=== PATIENT | male | born 1975 | race Caucasian/White ===

== ENCOUNTER 2017-01-08 22:46 | Inpatient (IN) | payer MEDICAID ==
[~2017-01-08] VITALS: Ht 175.3 cm; Wt 89.1 kg
[2017-01-09] VITALS (20 sets, daily range): BP systolic 111–145; BP diastolic 74–100; Ht 175.3 cm; Wt 89.1 kg
[2017-01-09 01:11] LABS: APPEARANCE CLEAR (CLEAR); BILIRUBIN 1+ (NEGATIVE); COLOR DK YELLOW (YELLOW); GLUCOSE NEGATIVE (NEGATIVE); KETONE SMALL mg/dL (NEGATIVE); LEUKOCYTE ESTERASE NEGATIVE (NEGATIVE); NITRITE NEGATIVE (NEGATIVE); PROTEIN NEGATIVE (NEGATIVE); SPECIFIC GRAVITY 1.025 (1.005-1.020); UROBILINOGEN NORMAL (NORMAL)
[2017-01-09 01:17] LABS: UDS - AMPHET POSITIVE QUAL (NEGATIVE); UDS - BARB NEGATIVE QUAL (NEGATIVE); UDS - BENZO NEGATIVE QUAL (NEGATIVE); UDS - COCAINE NEGATIVE QUAL (NEGATIVE); UDS - METH NEGATIVE QUAL (NEGATIVE); UDS - OPIATE NEGATIVE QUAL (NEGATIVE); UDS - PCP NEGATIVE QUAL (NEGATIVE); UDS - THC POSITIVE QUAL (NEGATIVE)
[2017-01-09 01:21] LABS: BASOPHILS 0.3 % (0-2); EOSINOPHILS 0.7 % (0-7); HEMATOCRIT 39.3 % (42.0-54.0); HEMOGLOBIN 13.1 g/dL (13.5-17.5); IMMATURE GRANULOCYTES 0.2 % (0-5); LYMPHOCYTES 13.8 % (15-50); MCH 29.5 pg (26.0-34.0); MCHC 33.3 g/dL (31.0-37.0); MCV 88.5 fL (80.0-100.0); MEAN PLATELET VOLUME 9.4 fL (7.4-10.4); MONOCYTES 9.6 % (2-11); NEUTROPHILS 75.4 % (40-80); PLATELET COUNT 399 10x3/uL (130-400); RBC 4.44 10x6/uL (4.20-6.10); RDW 13.4 % (11.5-14.5); WBC 16.5 10x3/uL (4.8-10.8)
[2017-01-09 01:41] LABS: ALBUMIN 3.5 g/dL (3.4-5.0); ANION GAP 13.8 mmol/L (8-16); BILIRUBIN - TOTAL 1.4 mg/dL (0.2-1.3); CALCIUM 9.3 mg/dL (8.5-10.1); CARBON DIOXIDE 26.8 mmol/L (21.0-32.0); CREATININE - SERUM 1.2 mg/dL (0.6-1.3); POTASSIUM - SERUM 3.6 mmol/L (3.5-5.1); PROTEIN - SERUM 8.2 g/dL (6.4-8.2)
--- NOTE | 2017-01-09 02:49 | NUR ---
0245 DR JUSTIN PRESENT FOR VASCULAR STUDIES. TIME OUT PERFORMED.
--- NOTE | 2017-01-09 02:50 | NUR ---
PT IN ER WITH POLICE ANKLE MONITORING DEVICE ON LEFT ANKLE. [facility]K POLICE DEPARTMENT PRESENT AND STATES THAT HE CANNOT AUTHORIZE REMOVAL OF MONITOR AND THAT HE HAS TRIED TO CONTACT PT LITURGICAL MUSIC DIRECTOR WITHOUT SUCCESS. INFORMED OFFICER THAT WE MAY HAVE TO CUT MONITOR OFF FOR SURGICAL PROCEDURE. HE STATED THAT HIS SERGEANT SAID TO DO WHAT WE HAD TO DO. DR MONTENEGRO CUT ANKLE MONITOR OFF IN OR ROOM.
--- NOTE | 2017-01-09 03:30 | NUR ---
0330: Pt arrived from OR with OR team at bedside. Pt placed in room 2304 and all monitors established with alarm on.
--- NOTE | 2017-01-09 03:35 | NUR ---
0335: Pt arrived from OR with ankle bracelet device that has been removed by OR for purposes of cautery. Notified HSV. Ankle bracelet remains in room and OR staff state [facility] was contacted prior to OR.
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
--- NOTE | 2017-01-09 04:10 | NUR ---
0410: Diluadid NET DEVELOPER CONSULTANT intiated at this time as per orders. Education provided to patient regarding use of NET DEVELOPER CONSULTANT and pt returns demonstration. Pt states he wants "Hydros" and asks if pain medicine is like "Hydros." Education regarding pain relief provided. Pt states he is "done doing meth." Pt continues with poor recall and does not know what happended to leg. Pt verbalized understanding of surgery and asks when he can smoke. Instructions regarding smoking provided. Pt states "I really don't live anywhere." Discussed with patient case management involvement to assist.
--- NOTE | 2017-01-09 07:00 | NUR ---
REC'D CARE OF PT. VSS.
--- NOTE | 2017-01-09 08:00 | NUR ---
INITIAL ASSESSMENT COMPLETED PER FLOW SHEET. PLEASANTLY CONFUSED. REORIENTED TO TIME. ON RA SATTING 98%. RR 20 EVEN AND UNLABORED. LEFT WRIST/HAND PIV WITH 0.45NS INFUSING AT 50 CC PER HOUR. NO S/S OF INFILTRATION. RIGHT LEG DRSG WITH FIXATION DEVICE IN PLACE. UPPER EXT PPP. LEFT LOWER EXT PPP. RIGHT LOWER EXT PPD. GARZA. REPOSITIONS SELF IN BED. CAP REFILL <3 X4 EXT. DILAUDED SERGEANT OF CORRECTIONS 0.2 MG Q 10". 4MG Q 4H LO. C/O INCISIONAL PAIN 02/10. TEACHING DONE ABOUT USE OF SERGEANT OF CORRECTIONS.BED IN LOWEST POSITION. CLWR. CPOC.
[2017-01-09 09:19] LABS: BASOPHILS 0.1 % (0-2); EOSINOPHILS 0.1 % (0-7); HEMATOCRIT 39.2 % (42.0-54.0); HEMOGLOBIN 12.9 g/dL (13.5-17.5); IMMATURE GRANULOCYTES 0.3 % (0-5); LYMPHOCYTES 10.3 % (15-50); MCH 29.4 pg (26.0-34.0); MCHC 32.9 g/dL (31.0-37.0); MCV 89.3 fL (80.0-100.0); MEAN PLATELET VOLUME 9.8 fL (7.4-10.4); MONOCYTES 10.1 % (2-11); NEUTROPHILS 79.1 % (40-80); PLATELET COUNT 333 10x3/uL (130-400); RBC 4.39 10x6/uL (4.20-6.10); RDW 13.3 % (11.5-14.5)
[2017-01-09 09:45] LABS: CALC OSMOLALITY 286 mosm/kg (275-300); CALCIUM 8.9 mg/dL (8.5-10.1); CARBON DIOXIDE 26.2 mmol/L (21.0-32.0); CHLORIDE - SERUM 104 mmol/L (98-107); GLUCOSE 147 mg/dL (74-106); SODIUM 141 mmol/L (136-145); UREA NITROGEN 20 mg/dL (7-18); eGFR NON AFRICAN AMERICAN 87 mL/min (90-120)
[2017-01-09 09:46] LABS: POTASSIUM - SERUM 5.4 mmol/L (3.5-5.1)
--- NOTE | 2017-01-09 11:00 | NUR ---
REASSESSMENT COMPLETED PER FLOW SHEET. NO ACUTE CHANGES. DRAINAGE AT RIGHT LOWER EXT INCISION DRSG HAS NOT INCREASED. PATTING 99% ON RA. 0.45NS CONTINUES TO INFUSE AT LEFT HAND PIV. NO S/S OF INFECTION OR INFILTTATION. STERILE CAPS ARE ON. DRSG CD&I. SCD IS ON LEFT LEG. RIGHT LEG WITH DRSG AND EXTERNAL FIXATION DEVICE. ALL PPP. GARZA. FOLLOWS COMMANDS. COWR. CPOC. DENIES NEEDS. DENIES PAIN.
--- NOTE | 2017-01-09 11:38 | NUR ---
MOM AT BEDSIDE. UPDATED.
--- NOTE | 2017-01-09 12:45 | NUR ---
DR. MONTENEGRO JUST LEFT ROOM. HE UPDATED FAMILY. HE PUT IN TRANSFER ORDERS.
--- NOTE | 2017-01-09 14:00 | NUR ---
DENIES NEEDS. DENIES PAIN.
--- NOTE | 2017-01-09 15:11 | NUR ---
TRANSFER ORDERS ARE IN. CONTINUE TO WAIT FOR BED. RESTING WITH EYES CLOSED. RESPONSE APPROPRIATLY TO VERBAL STIMULI. VSS. CM=NS RATE OF 61. NO ECTOPY. CLWR. CPOC.
--- NOTE | 2017-01-09 15:14 | NUR ---
POLICE MONITORING DEVICE REMAINS IN ROOM WITH PT.
--- NOTE | 2017-01-09 15:34 | NUR ---
NITRO APPLIED TO RIGHT FOOT PER ORDERS.
--- NOTE | 2017-01-09 17:18 | NUR ---
DINNER TRAY SERVED
--- NOTE | 2017-01-09 18:13 | NUR ---
"MY LEG IS KILLING ME" I EXPLAINED TO HIM AND THE FAMILY THAT HE HAS BEEN SLEEPING FOR A WHILE AND HAS NOT BEEN USING HIS LEGEND MAKER. HE DENIES PAIN EXCEPT HIS RIGHT LEG INCISIONAL PAIN. EXTERNAL FIXATION DEVICE IN PLACE. SMALL AMOUNT OF DRAINAGE NOTED ON BOTTOM OF CALF OF LEG. VSS. SATTING 98% ON RA. BED IN LOW POSITION. CLWR. CPOC.
--- NOTE | 2017-01-09 18:13 | NUR ---
FAMILY AT BEDSIDE. PT. AWAKE, A&O X3. C/O PAIN, INCISIONAL 04/12. INSTRUCTED HIM TO USE HIS OFFICE ASSISTANT.
--- NOTE | 2017-01-09 19:30 | NUR ---
REPORT RECIEVED, SHIFT ASSESSMENT COMPLETE, PT IS CONFUSED TO SITUATION AND TIME, REORIENTS EASILY, ON RA WITH 97% O2 SAT. LUNGS CLEAR IN ALL LOBES, S1S2, CM-NSR, PATENT LEFT HAND PIV WITH 1/2 NS INFUSING VIA PUMP, ABDOMEN IS SOFT AND FLAT WITH ACTIVE BS, URINAL AT BEDSIDE, RIGHT GROIN DRSG TO INSERTION SITE IN CDI, FIXATOR TO RIGHT LEG, DRSG OOZING, ALL PPP, VSS, CALL LIGHT IN REACH
--- NOTE | 2017-01-09 23:08 | NUR ---
PT RESTING AT THIS TIME, NO NEEDS NOTED, VSS, CALL LIGHT IN REACH
[2017-01-10 03:00] VITALS: BP 115/76
--- NOTE | 2017-01-10 03:14 | NUR ---
PRISCILA FROM LAB IN ROOM TO DRAW DAILY LAB
[2017-01-10 03:57] LABS: HEMOGLOBIN 11.3 g/dL (13.5-17.5)
--- NOTE | 2017-01-10 07:00 | NUR ---
REPORT RECIEVED ASSUMED CARE. PATIENT IN BED WITH IV INTACT. NO COMPLAINTS. CALL LIGHT WITHIN REACH.
[2017-01-10 08:04] VITALS: BP 132/90
[2017-01-10 11:35] VITALS: BP 122/72
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
--- NOTE | 2017-01-10 15:20 | NUR ---
PATIENT PAD UNDER RLE CHANGED. PATIENT PULLED UP AND REPOSITIONED. IV INTACT. EXTERNAL FIXATOR INTACT. ELEVATED ON 3 PILLOWS. CALL LIGHT WITHIN REACH.
[2017-01-10 15:46] VITALS: BP 127/76
--- NOTE | 2017-01-10 18:55 | NUR ---
PATIENT IN BED WITH IV INTACT. DRESSING TO RIGHT LEG LEAKING PINK/RED DRAINAGE. PAD UNDER LEG CLEAN. NO COMPLAINTS AT THIS TIME. CALL LIGHT WITHIN REACH
--- NOTE | 2017-01-10 19:30 | NUR ---
PATIENT RESTING IN BED WITH NO VISIBLE SIGNS OF DISTRESS. DRAINAGE NOTED ON KATE BANDAGE TO THE PATIENT'S RIGHT LEG. BROUGHT PATIENT A DRINK PER HIS REQUEST. PATIENT DENIES OTHER NEEDS AT THIS TIME. BED IN LOWEST POSITION AND CALL LIGHT WITHIN REACH. ENCOURAGED THE PATIENT TO CALL IF HE HAS FURTHER NEEDS.
[2017-01-10 20:56] VITALS: BP 128/76
[2017-01-11] VITALS: BP 124/43
[2017-01-11 04:00] VITALS: BP 146/97
[2017-01-11 05:25] LABS: HEMATOCRIT 31.8 % (42.0-54.0); HEMOGLOBIN 10.6 g/dL (13.5-17.5)
--- NOTE | 2017-01-11 07:00 | NUR ---
REPORT RECIEVED ASSUMED CARE. PATIENT IN BED WITH IV INTACT. NO COMPLAINTS AT THIS TIME. CALL LIGHT WITHIN REACH. RLE ELEVATED ON THREE PILLOWS. DRESSING INTACT. EXTERNAL FIXATION INTACT. CALL LIGHT WITHIN REACH.
[2017-01-11 08:08] VITALS: BP 138/94
--- NOTE | 2017-01-11 10:40 | NUR ---
PATIENT IN BED WITH IV INTACT, NO COMPLAINTS. FAMILY AT BEDSIDE. CALL LIGHT WITHIN REACH.
--- NOTE | 2017-01-11 14:27 | NUR ---
Patient's mother spoke with CM multiple times today about getting the patient placed. I spoke with patient and he is willing to go to a rehab as long has he is able to smoke cigarettes. I spoke with JAMARI Santos she went and spoke with patient and explained the process he is agreeable. Waiting on approval. CM will continue to follow and assist.
--- NOTE | 2017-01-11 15:00 | NUR ---
PATIENT IN BED WITH EYES CLOSED RESTING QUIETLY AT THIS TIME. CALL LIGHT WITHIN REACH.
[2017-01-11 16:32] VITALS: BP 133/85
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
[2017-01-11 20:00] VITALS: BP 138/87
--- NOTE | 2017-01-11 20:05 | NUR ---
PATIENT IS AWAKE AND ALERT. PATIENT STATED HE CANNOT BREATH, OXYGEN SATURATION 99% ON ROOM AIR. BROUGHT PATIENT AN INCENTIVE SPIROMETER, SOFIA EDUCATED PATIENT ON USE. PATIENT DEMONSTRATED UNDERSTANDING. TOLD PATIENT TO COUGH, PATIENT STATED "I CAN'T" AND POINTED AT THIS LEG WITH AN EXTERNAL FIXATOR IN PLACE. EXPLAINED TO PATIENT THAT IF HE DOES NOT COUGH AND DEEP BREATH THAT IT PUTS HIM AT RISK FOR PN. PATIENT COUGHED UP SPUTUM INTO A SODA CAN. PATIENT STATED I CAN DO THAT. PATIENT IS HICCUPPING AND STATED "I NEED SOMETHING FOR INDIGESTION." OFFERED PATIENT SOME MILK. HE REFUSED THE MILK, HE STATED "I NEED SOME MEDICINE." I STATED "I WILL TELL YOUR NURSE, SOFIA." TOLD SOFIA.
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
[2017-01-12] VITALS: BP 130/88
--- NOTE | 2017-01-12 01:53 | NUR ---
EYES CLOSED RESP EVEN AND UNALBORED. NO DISTRESS NOTED.
[2017-01-12 04:00] VITALS: BP 122/78
[2017-01-12 05:50] LABS: HEMATOCRIT 31.1 % (42.0-54.0); HEMOGLOBIN 10.2 g/dL (13.5-17.5)
--- NOTE | 2017-01-12 07:25 | NUR ---
ASSESSMENT PER FLOW SHEET.DRESSING RLE HAS SOME BLOODY DRAINAGE ON KATE WRAP.PT STATES PAIN CONTROLLED WITH CLINIC ASSISTANT.MONITOR FOR NEEDS.
[2017-01-12 08:01] VITALS: BP 116/68
[2017-01-12 11:54] VITALS: BP 124/81
--- NOTE | 2017-01-12 15:00 | NUR ---
DRESSING CHANGE TO RLE ORDERED.PT TOLERATED WELL.BATH AND BED CHANGE
--- NOTE | 2017-01-12 15:36 | NUR ---
REFERRAL SENT TO [facility] IN [place] SPOKE WITH KALEB ([phone])
[2017-01-12 16:30] VITALS: BP 122/82
--- NOTE | 2017-01-12 18:41 | NUR ---
REMAINS WITHOUT CHANGE FROM INITIAL SHIFT ASSESSMENT.CONT PLAN OF CARE.
[2017-01-12 19:00] VITALS: BP 114/70
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
[2017-01-13 04:00] VITALS: BP 113/63
--- NOTE | 2017-01-13 04:24 | NUR ---
RESTING QUIETLY. NO DISTRESS NOTED.
--- NOTE | 2017-01-13 07:50 | NUR ---
ASSESSMENT PER FLOW SHEET.PT WITHOUT DISTRESS.C/O PAIN,BUT STATES HASNT BEEN PUSHING BUTTON FOR ASSESSOR. USE INSTRUCTED FOR ASSESSOR.CALL LIGHT IN REACH
[2017-01-13 07:52] VITALS: BP 142/50
[2017-01-13] MEDS ORDERED: PERCOCET 10/3251 TA1 PO (08:29)
[2017-01-13 12:23] VITALS: BP 120/65
[2017-01-13 15:41] VITALS: BP 122/77
--- NOTE | 2017-01-13 16:18 | NUR ---
HAS BEEN RESTING THIS AFTERNOON,FAMILY HAS BEEN TO VISIT.HE REMAINS WITHOUT DISTRESS.WITHOUT NEEDS.CALL LIGHT IN REACH
--- NOTE | 2017-01-13 19:47 | NUR ---
REMAINS WITHOUT NEEDS,WITHOUT DISTRESS.CONT PLAN OF CARE
[2017-01-13 20:00] VITALS: BP 121/73
[2017-01-14] VITALS (7 sets, daily range): BP systolic 106–157; BP diastolic 62–89
[2017-01-14 05:06] LABS: HEMATOCRIT 27.4 % (42.0-54.0); HEMOGLOBIN 9.2 g/dL (13.5-17.5); MCH 29.5 pg (26.0-34.0); MCHC 33.6 g/dL (31.0-37.0); MCV 87.8 fL (80.0-100.0); MEAN PLATELET VOLUME 9.1 fL (7.4-10.4); RBC 3.12 10x6/uL (4.20-6.10); RDW 13.2 % (11.5-14.5); WBC 12.5 10x3/uL (4.8-10.8)
[2017-01-14 05:11] LABS: CALC OSMOLALITY 272 mosm/kg (275-300); CALCIUM 8.2 mg/dL (8.5-10.1); CARBON DIOXIDE 27.5 mmol/L (21.0-32.0); CHLORIDE - SERUM 101 mmol/L (98-107); CREATININE - SERUM 0.6 mg/dL (0.6-1.3); GLUCOSE 105 mg/dL (74-106); POTASSIUM - SERUM 4.4 mmol/L (3.5-5.1); SODIUM 136 mmol/L (136-145); UREA NITROGEN 16 mg/dL (7-18); eGFR NON AFRICAN AMERICAN > 90 mL/min (90-120)
--- NOTE | 2017-01-14 07:40 | NUR ---
ASSESSMENT PER FLOW SHEET.PT WITHOUT DISTRESS,BUT COMPLAINS OF PAIN.CNC MAINTENANCE MECHANIC USE INSTRUCTED,PT HAS NOT BEEN USING.PT STATES HE FALLS TO SLEEP.DRESSING RLE CDI HAS BEEN CHANGED AT 0430 THIS AM BY MICHAEL.DENIES NEEDS.CALL LIGHT IN REACH
--- NOTE | 2017-01-14 08:20 | NUR ---
MEDS ORDERED FOR PAIN PER MAR.MEDS ORDERED FOR HICCUPS PER MAR.
--- NOTE | 2017-01-14 09:09 | NUR ---
CM SENT A REFERRAL TO [facility] [employer] SPOKE WITH A JACLYN AND A YVAN. YVAN WILL COME AND SPEAK WITH PATIENT TODAY FOR PLACEMENT. CM HAVE RECEIVED DENIALS FROM [employer], [employer], [facility] [employer], [employer], [employer]. CM WILL CONTINUE TO TRY TO PLACE PATIENT. MOTHER CONTINUES TO SAY NO TO THE PATIENT BEING DISCHARGED TO HER HOME.
--- NOTE | 2017-01-14 11:17 | NUR ---
CM met with patient to discuss her discharge plan. She states her plan will to go [facility] in patient rehab when she is ok to go. If she is not accepted then her second choice is [facility]. CM will continue to follow and assist.
--- NOTE | 2017-01-14 13:19 | NUR ---
Received a call from Jesus at [facility] and he stated that they would accept the patient on Wednesday 01/17.
[2017-01-15] VITALS: BP 126/77
[2017-01-15 04:00] VITALS: BP 131/93
--- NOTE | 2017-01-15 04:08 | NUR ---
ASSESSED AT THE BEGINNING OF THE SHIFT. PT IS ALERT AND ORIENTED, ABLE TO VERBALIZE NEEDS. HE HAS AN EXTERNAL FIXATOR TO HIS RIGHT LOWER LEG AND IT IS ELEVATED ON A PILLOW. THE DRESSINGS ARE IN PLACE WITH NO DRAINAGE NOTED, CLEAN AND DRY. HE HAS A CERTIFIED OPHTHALMIC ASSISTANT FOR PAIN CONTROL BUT IS ASKING MORE AND MORE FOR EXTRA BREAKTHROUGH MEDS FOR PAIN. HE IS ABLE TO MOVE HIMSELF ABOUT IN THE BED AND IS EVEN ASKING TO HAVE CRUTCHES OR A WHEELCHAIR TO GO OUT IN THE HALLWAYS. INSTRUCTED TO ASK MD IN AM IF HE OK'S THEN WE WILL LET HIM. THE BED IS LOW, RAILS UP X'S 2 WITH THE CALL LIGHT AT HAND.
--- NOTE | 2017-01-15 07:00 | NUR ---
REPORT RECIEVED, ASSUMED CARE. PATIENT IN BED WITH IV INTACT. NO COMPLAINTS AT THIS TIME. CALL LIGHT WITHIN REACH.
[2017-01-15 08:23] VITALS: BP 128/79
[2017-01-15 12:01] VITALS: BP 126/78
--- NOTE | 2017-01-15 17:00 | NUR ---
NORCO PO PER C/O 10 TO RIGHT LEG. NEW BAG OF IV FLUIDS SPIKED.
--- NOTE | 2017-01-15 17:45 | NUR ---
PATIENT IN BED WITH IV INTACT. NO COMPLAINTS. LEG ELEVATED ON PILLOWS. DRESSING CLEAN AND DRY. EXTERNAL FIXATION INTACT.
[2017-01-15 20:00] VITALS: BP 125/73
[2017-01-16] VITALS: BP 127/85
[2017-01-16 04:00] VITALS: BP 134/83
--- NOTE | 2017-01-16 07:00 | NUR ---
REPORT RECIEVED ASSUMED CARE. PATIENT IN BED WITH IV INTACT. NO COMPLAINTS. CALL LIGHT WITHIN REACH.
[2017-01-16 12:57] VITALS: BP 155/95
[2017-01-16 15:58] VITALS: BP 144/54
--- NOTE | 2017-01-16 18:55 | NUR ---
PATIENT IN BED WITH NO COMPLAINTS. LEG ELEVATED ON PILLOW WITH EXTERNAL FIXATION AND DRESSING CDI. CALL LIGHT WITHIN REACH.
--- NOTE | 2017-01-16 19:05 | NUR ---
Received patient in bed visiting with two males. Drsg on lower right leg is C/D/I, elevated on pillow with external fixation. Circulation and sensation to right foot good. Remains on bedrest. PIV in left forearm infusing NS @10ml/hr. No signs of infection or infiltration. On room air, no respiratory problems. Left SCD not on at this time per patient request.
[2017-01-16 20:00] VITALS: BP 128/80
[2017-01-17] VITALS: BP 118/73
--- NOTE | 2017-01-17 00:02 | NUR ---
Has been medicated x 2 for right lower leg pain, @2025 with [place] tab and @2232 with Percocet tab. Reports analgesics are maintaining tolerable pain level at this time. PIV site inflamed and reddened. New PIV #20 resited in lower right forearm and other PIV removed. New PIV is SL at this time. Did flush well with good blood return.
[2017-01-17 04:00] VITALS: BP 118/78
--- NOTE | 2017-01-17 07:00 | NUR ---
REPORT RECIEVED ASSUMED CARE. PATIENT IN BED WITH NO COMPLAINTS AT THIS TIME. IV INTACT. CALL LIGHT WITHIN REACH.
[2017-01-17] MEDS ORDERED: ASPIRIN81 MG PO (07:54)
[2017-01-17 08:09] VITALS: BP 118/72
--- NOTE | 2017-01-17 09:11 | NUR ---
Patient with discharge orders to [facility]. I went and spoke with Patient to make sure he still wanted to go and he did. DES signed for [facility]. I gave the patient a brochure of [facility]. I called patient mother to inform her of his placement. She asked multiple questions that I did not have the answers to yet and I offered her to sit at patient bedside till transferred happened and she did not have time to do that. I told her that [facility] will have discharge instructions with all dr's appointments on and that we would fax the info to the [place] [facility] as [facility]. Spoke with Jesus at [facility] about patient with discharge orders. He stated he would call me back with a last picker time. CM will continue to follow and assist.
--- NOTE | 2017-01-17 10:15 | NUR ---
PATIENT DRESSING CHANGED AT THIS TIME. PIN SITES CLEANED WITH WOUND GROUP MANAGING DIRECTOR. INCISIONS AND SURROUNDING AREAS CLEANED WITH WOUND GROUP MANAGING DIRECTOR. INCISIONS CLEAN AND RED. SMALL AMOUNT OF DRAINAGE ON OLD GAUZE. YELLOW AND PINK DRAINAGE. XEROFORM AND NEW GAUZE PLACED AROUND PIN SITES AND OVER INCISIONS. WRAPPED WITH KATE BANDAGES. PATIENT TOLERATED WITH A SMALL AMOUNT OF PAIN. IV INTACT. CALL LIGHT WITHIN REACH.
[2017-01-17 11:33] VITALS: BP 128/81
--- NOTE | 2017-01-17 11:50 | NUR ---
PATIENT IN BED WITH EYES CLOSED RESTING QUIETLY. CALL LIGHT WITHIN REACH.
--- NOTE | 2017-01-17 12:58 | NUR ---
PATIENT REPORT CALLED TO MIKE AT [facility]. PATIENT WAITING FOR AMBULANCE AT THIS TIME. IV REMOVED WITH CATH TIP INTACT. CALL LIGHT WITHIN REACH. FAMILY AT BEDSIDE.
--- NOTE | 2017-01-17 14:10 | NUR ---
PATIENT DISCHARGED TODAY VIA EMS TO [facility] TO A MEDICAID BED. ATTEMPTED TO CALL HIS MOTHER TO LET HER KNOW THAT HE HAS LEFT THE HOSPITAL WITHOUT LUCK.
== END 2017-01-17 14:24 | DRG 493 ==
LOC: D.ER 22:46 → D.MS 01-09 02:23 → D.ICU 01-09 02:23 → D.MS 01-10 06:35
PROVIDERS: Family Medicine; Surgery; ADMIT Orthopaedic Surgery
PROC: 0KNS0ZZ Release Right Lower Leg Muscle, Open Approach (ICD-10-PCS; 2017-01-09)
PROC: 0KNS0ZZ Release Right Lower Leg Muscle, Open Approach (ICD-10-PCS; 2017-01-09)
PROC: 0KNS0ZZ Release Right Lower Leg Muscle, Open Approach (ICD-10-PCS; 2017-01-09)
PROC: 0QSG04Z Reposition Right Tibia with Internal Fixation Device, Open Approach (ICD-10-PCS; 2017-01-09)
PROC: B41F1ZZ Fluoroscopy of Right Lower Extremity Arteries using Low Osmolar Contrast (ICD-10-PCS; 2017-01-09)
PROC: 0KNS0ZZ Release Right Lower Leg Muscle, Open Approach (ICD-10-PCS; principal; 2017-01-09 02:04)
PROC: 0QSJ04Z Reposition Right Fibula with Internal Fixation Device, Open Approach (ICD-10-PCS; 2017-01-09 02:04)
DX: S82.141A Displaced bicondylar fracture of right tibia, initial encounter for closed fracture (principal); T79.A21A Traumatic compartment syndrome of right lower extremity, initial encounter; S82.831A Other fracture of upper and lower end of right fibula, initial encounter for closed fracture; X58.XXXA Exposure to other specified factors, initial encounter; Z86.73 Personal history of transient ischemic attack (TIA), and cerebral infarction without residual deficits; F15.90 Other stimulant use, unspecified, uncomplicated; F17.200 Nicotine dependence, unspecified, uncomplicated

== ENCOUNTER 2017-02-17 06:59 | Day surgery (SDC) | payer MEDICAID ==
[~2017-02-17] VITALS: Ht 175.3 cm; Wt 86.2 kg
[~2017-02-17 06:59] MED LIST: ASPIRIN81 MG PO; COLACE100 MG PO; PERCOCET 10/3251 TA1 PO; VITAMIN D250000 UNIT PO
[2017-02-17 07:36] VITALS: BP 105/74; Ht 175.3 cm; Wt 86.2 kg
[2017-02-17] MEDS ORDERED: PERCOCET 10/3251 TA1 PO (11:58)
--- NOTE | 2017-02-17 13:40 | NUR ---
1340--IV DC'D, PT DRESSING AT THIS TIME. [facility]
--- NOTE | 2017-02-17 16:38 | NUR ---
1300--PT'S MOTHER COMES TO DESK STATING THAT PT IS OUT OF BED STANDING TO URINATE. UPON ENTERING ROOM PT PUTS URINAL ON BEDSIDE TABLE AND GETS IN BED. BRIGHT RED BLOOD NOTED TO KATE BANDAGE OF RIGHT KNEE, DR MONTENEGRO FOUND AND REPORT GIVEN. ORDERS TO REINFORCE BANDAGE AND DISCHARGE PT RECIEVED PER MONI. [facility] 1400--PT WAITING ON RIDE. [facility] 1422--PT COMPLAINS OF PAIN TO RIGHT LEG, PERCOCET 10/325MG GIVEN FOR PAIN. [facility] 1430--[facility] CALLED AND REPORT GIVEN TO RECIEVING NURSE OF DISCHARGE INSTRUCTIONS. [facility] 1500--DISCHARGE INSTRUCTIONS GIVEN TO PT, PT VERBALIZES UNDERSTANDING. PT OFF UNIT VIA WC. [facility]
--- NOTE | 2017-02-18 21:23 | OP ---
PATIENT NAME: COLBY JACKSON MEDICAL RECORD: [id number] :73 [facility] DATE: SURGEON: KEKE MONTENEGRO MD DATE OF OPERATION: 02/17/2017 Orthopedic Surgery Operative Note PREOPERATIVE DIAGNOSES: 1. Retained external fixator, right lower extremity. 2. Proximal tibial plateau fracture. POSTOPERATIVE DIAGNOSIS: 1. Retained external fixator, right lower extremity. 2. Proximal tibial plateau fracture. PROCEDURES: 1. Open reduction and internal fixation of tibial plateau fracture. 2. Removal of previously placed external fixator. SURGEON: Keke Montenegro MD. ANESTHESIA: General. INTRAOPERATIVE COMPLICATIONS: None. SUMMARY OF PATHOLOGIC FINDINGS: The patient was indeed found to have good healing; however, under fluoroscopic examination, healing was not enough to forego internal fixation. OPERATIVE SUMMARY IN DETAIL: After obtaining the appropriate preoperative orthopedic surgery consent as well as anesthetic consultation, evaluation and clearance, the patient was brought to the operating room and placed on the operating table in supine position. After general laryngeal mask was administered, fluoroscopy was brought in and the rails of the external fixator was removed and under radiographic review, fracture site was stabilized; however, there was a small amount of motion seen with varus and valgus force. For this reason, the decision was to proceed with an open reduction and internal fixation. At this point, the entire lower extremity was prepped and draped in a routine sterile fashion with apex pins in place. Leg was elevated and after prolonged elevation, the tourniquet was inflated. [place] pins were removed. A curvilinear incision was made over the lateral aspect of the right lower extremity about the knee. This was taken down to the proximal tibia laterally. Subperiosteal dissection was used to expose the tibia. Large bone clamps were then used to hold the lateral based access plate in place. Then compression a screw was placed first distally and then compression screws were placed across the tibial plate and then after good compression was seen on AP and lateral planes with what I think is good joint line fixation, the compression screws were serially and sequentially removed and replaced with locking screws. Remainder of the plate was filled serially and sequentially with a combination of both compression and locking screws for good internal fixation. At this point, the wound was copiously irrigated with normal saline. The fascial closure was achieved with the #1 Vicryl. This was followed by #1 Vicryl for subcutaneous closure followed by stent skin dena. Sterile dressings were applied. Radiographs were taken for final radiologist review. Sterile dressings were applied. The patient was awakened, taken to recovery room in OPERATIVE REPORT [id number] COLBY JACKSON stable condition. All final needle and sponge counts were correct. TRANSINT:[id number] Voice Confirmation ID: [id number] DOCUMENT ID: [id number] MONI BUNDY, KEKE GARCIA at 2123 CC: [id number] DICTATION DATE: 02/17/17 1202 [facility] ADMISSIONS COUNSELOR: 02/17/[address] [facility] [facility] [place] 02/17/17 [facility] [address] [place] [address]
== END 2017-02-17 15:00 | disposition home or self-care (01) ==
LOC: D.OPS 06:59 → D.PAN 14:50 → D.OPS 15:00 → D.PAN 15:45
DX: Z46.89 Encounter for fitting and adjustment of other specified devices (principal); S82.141A Displaced bicondylar fracture of right tibia, initial encounter for closed fracture; X58.XXXA Exposure to other specified factors, initial encounter; Z01.812 Encounter for preprocedural laboratory examination